=== PATIENT | female | born 1970 | race Caucasian/White ===

== ENCOUNTER 2016-05-02 20:46 | Emergency (ER) | payer BC ==
[~2016-05-02] VITALS: Ht 165.1 cm; Wt 100.0 kg
[2016-05-02 20:48] VITALS: TEMP 97.9
[2016-05-02] MEDS ORDERED: CELEXA40 MG PO (20:54)
[2016-05-02] MEDS ORDERED: CATAFLAM50 MG (20:54)
[2016-05-02] MEDS ORDERED: ZANAFLEX CAPSULE6 MG PO (20:55)
[2016-05-02] MEDS ORDERED: AMITRIPTYLINE H25 M1 PO (20:56)
[2016-05-02] MEDS ORDERED: ZOCOR 40MG40 MG PO (20:56)
[2016-05-02] MEDS ORDERED: ZANAFLEX 4MG TAB4 MG PO (20:56)
[2016-05-02] MEDS ORDERED: BYSTOLIC5 MG PO (20:57)
[2016-05-02] MEDS ORDERED: TOPAMAX 25MG25 M1 PO (20:57)
[2016-05-02] MEDS ORDERED: ULTRAM 50MG TAB50 MG PO (20:57)
[2016-05-02] MEDS ORDERED: TYLENOL 325MG325 MG PO (20:58)
[2016-05-02 21:31] LABS: BASO % 0.2 % (0.0-2.0); EOS % 0.1 % (0-4.0); GRAN # 9.6 (1.4-6.5); GRAN % 88.2 % (42.2-75.2); HEMATOCRIT 38.2 % (37.0-47.0); HEMOGLOBIN 12.9 g/dl (12.5-16.0); LYMPH # 0.8 (1.2-3.4); LYMPH % 7.2 % (20.0-51.0); MEAN CELL VOLUME 89 fl (80.0-100.0); MEAN CORPUSCULAR HEMOGLOBIN 30 pg (27.0-31.0); MEAN CORPUSCULAR HGB CONC 34 g/dl (33.0-37.0); MEAN PLATELET VOLUME 10.4 fl (7.4-10.4); MONO # 0.4 (0.1-0.6); MONO % 3.7 % (1.7-9.3); PLATELET COUNT 220 K/mm3 (130-400); REDCELL DISTRIBUTION WIDTH-CV 12.1 % (11.5-14.5); WHITE BLOOD COUNT 10.9 K/mm3 (4.8-10.8)
[2016-05-02 21:37] LABS: ADJUSTED CALCIUM 8.9 mg/dL (8.4-10.2); ALBUMIN 4.4 gm/dL (3.5-5.0); CALCIUM 9.2 mg/dL (8.4-10.2); CREATININE, serum 1.15 mg/dL (0.52-1.25); POTASSIUM 3.8 mmol/L (3.4-5.0); TOTAL PROTEIN 7.6 gm/dL (6.4-8.2)
[2016-05-02] MEDS ORDERED: NEURONTIN300 MG/CAP PO (21:44)
[2016-05-02 21:56] LABS: PH 7 (5-8); SQUAMOUS EPITHELIAL 0-2 /hpf; URINE APPEARANCE Cloudy; URINE BACTERIA None Seen /hpf; URINE BILIRUBIN Negative (NEGATIVE); URINE BLOOD Negative (NEGATIVE); URINE COLOR Amber; URINE GLUCOSE Negative (NEGATIVE); URINE KETONE Negative (NEGATIVE); URINE UROBILINOGEN >=4.0 mg/dL (NEGATIVE); URINE WBC 0-2 /hpf
[2016-05-02] MEDS ORDERED: PERCOCET 325 MG1 TA2 PO (23:00)
[2016-05-02] MEDS ORDERED: ZOFRAN ODT4 MG PO (23:06)
[2016-05-02 23:23] VITALS: BP 148/82; PULSE 84
== END 2016-05-02 23:25 | disposition home or self-care (01) ==
LOC: COL.ER 20:46
PROVIDERS: Emergency Medicine
DX: N13.2 Hydronephrosis with renal and ureteral calculous obstruction (principal); I10 Essential (primary) hypertension
CPT/HCPCS: J1885; J2405; J3010; J7030

== ENCOUNTER 2018-04-30 09:24 | Emergency (ER) | payer BC ==
[~2018-04-30] VITALS: Ht 165.1 cm; Wt 95.5 kg
[~2018-04-30 09:24] MED LIST: AMITRIPTYLINE H25 M1 PO; BYSTOLIC5 MG PO; CATAFLAM50 MG; CELEXA40 MG PO; NEURONTIN300 MG/CAP PO; PERCOCET 325 MG1 TA2 PO; TOPAMAX 25MG25 M1 PO; TYLENOL 325MG325 MG PO; ULTRAM 50MG TAB50 MG PO; ZANAFLEX 4MG TAB4 MG PO; ZANAFLEX CAPSULE6 MG PO; ZOCOR 40MG40 MG PO; ZOFRAN ODT4 MG PO
[2018-04-30 09:29] VITALS: BP 143/101; PULSE 95; TEMP 98.4
[2018-04-30] MEDS ORDERED: DOXYCYCLINE HY100 MG PO (09:55)
== END 2018-04-30 10:12 | disposition home or self-care (01) ==
LOC: COL.ER 09:24
DX: L03.031 Cellulitis of right toe (principal); F31.9 Bipolar disorder, unspecified; Z88.0 Allergy status to penicillin

== ENCOUNTER 2023-09-09 10:27 | Day surgery (SDC) | payer BC ==
[~2023-09-09] VITALS: Ht 165.1 cm; Wt 93.4 kg
[~2023-09-09 10:27] MED LIST changes: +DOXYCYCLINE HY100 MG PO; +Indocyanine Green 12.5 MG in Water For Injection,Sterile 2.5 ML IV SCH; +LR 1,000 ML IV SCH; +Meclizine 25 MG TAB PO SCH
[2023-09-09 12:36] LABS: BASO % 0.4 % (0.0-2.0); EOS # 0.1 K/mm3 (0.0-0.7); EOS % 2.7 % (0.0-4.0); GRAN # 2.5 K/mm3 (1.4-6.5); GRAN % 55.7 % (42.2-75.2); HEMATOCRIT 37.7 % (37.0-47.0); HEMOGLOBIN 12.8 g/dl (12.5-16.0); LYMPH # 1.5 K/mm3 (1.2-3.4); LYMPH % 32.7 % (20.0-51.0); MEAN CELL VOLUME 86 fl (80.0-100.0); MEAN CORPUSCULAR HEMOGLOBIN 29 pg (27-31); MEAN CORPUSCULAR HGB CONC 34 g/dl (33.0-37.0); MEAN PLATELET VOLUME 10.2 fl (7.4-10.4); MONO # 0.4 K/mm3 (0.1-0.6); MONO % 8.3 % (1.7-9.3); PLATELET COUNT 205 K/mm3 (130-400)
[2023-09-09] MEDS ORDERED: AMITRIPTYLINE H25 M1 PO (12:38)
[2023-09-09] MEDS ORDERED: KAPSPARGO SPRIN25 MG PO (12:39)
[2023-09-09] MEDS ORDERED: ZYRTEC 10MG10 MG PO (12:40)
[2023-09-09] MEDS ORDERED: ZYBAN150 M1 (12:41)
[2023-09-09 12:51] LABS: ALBUMIN 3.6 g/dL (3.5-5.0); BILIRUBIN,TOTAL 1.3 mg/dL (0.2-1.2); CALCIUM 8.7 mg/dL (8.4-10.2); CREATININE, serum 0.84 mg/dL (0.57-1.11); POTASSIUM 4.1 mEq/L (3.5-4.5); TOTAL PROTEIN 6.5 g/dl (6.2-8.1)
[2023-09-09] MEDS ORDERED: Scopolamine 1 MG Delivered 3-Day PATCH TD SCH (13:00)
[2023-09-09] MEDS ORDERED: Ondansetron 4 MG/2 ML VIAL ONE (13:09)
[2023-09-09] MEDS ORDERED: dexAMETHasone 10 MG/ML VIAL ONE (13:09)
[2023-09-09] MEDS ORDERED: Glycopyrrolate 0.2 MG/ML 1 ML VIAL ONE (13:09)
[2023-09-09] MEDS ORDERED: NS 10 ML IV ONE (13:09)
[2023-09-09] MEDS ORDERED: Midazolam 2 MG/2 ML VIAL ONE (13:09)
[2023-09-09] MEDS ORDERED: Ketorolac 30 MG/ML VIAL ONE (13:09)
[2023-09-09] MEDS ORDERED: fentaNYL 50 MCG/ML 2 ML VIAL ONE ×2 (13:09→13:49)
[2023-09-09] MEDS ORDERED: Rocuronium 50 MG/5 ML Multi-Dose VIAL ONE ×2 (13:09→13:46)
[2023-09-09] MEDS ORDERED: Lidocaine PF 2% (20 MG/ML) 5 ML VIAL ONE (13:11)
[2023-09-09] MEDS ORDERED: Topical Skin Adhesive 1 EACH (1 ML) TOP ONE (14:18)
[2023-09-09] MEDS ORDERED: hydrALAZINE 20 MG/ML 1 ML VIAL IV PRN (14:30)
[2023-09-09] MEDS ORDERED: Ondansetron 4 MG/2 ML VIAL IV PRN ×2 (14:30→15:30)
[2023-09-09] MEDS ORDERED: fentaNYL 50 MCG/ML 1 ML SYRINGE/VIAL [PACU/SDC ONLY] IV PRN (14:30)
[2023-09-09] MEDS ORDERED: Iohexol 350 - 100 ML VIAL BILE DUCT ONE (14:42)
[2023-09-09] MEDS ORDERED: MOTRIN 600600 MG/TAB PO (15:09)
[2023-09-09] MEDS ORDERED: PERCOCET 325 MG1 TA2 PO (15:10)
[2023-09-09] MEDS ORDERED: Morphine 4 MG/ML VIAL IV PRN (15:30)
[2023-09-09] MEDS ORDERED: oxyCODONE/Acetaminophen 5-325 MG TAB PO PRN (15:30)
[2023-09-09] MEDS ORDERED: Ibuprofen 600 MG TAB PO PRN (15:30)
[2023-09-09] MEDS ORDERED: droPERidol 2.5 MG/ML 2 ML VIAL IV PRN (16:30)
[2023-09-09 16:35] VITALS: BP 119/61; PULSE 87; TEMP 96.6
[2023-09-09 16:45] VITALS: BP 114/66; PULSE 82
[2023-09-09 17:00] VITALS: BP 119/63; PULSE 88
[2023-09-09 18:05] VITALS: BP 126/79; PULSE 71; TEMP 97.2
--- NOTE | 2023-09-09 18:14 | NUR ---
1635- PT RETURNS FROM PACU PROCEDURE VIA CART TO [facility]. MONITORS ON AND ALARMS SET. CALL LIGHT WITHIN REACH. REPORT RECEIVED FROM MALGORZATA PANTOJA. PT ALERT AND ORIENTED. PT REQUESTS WTER. PT DENIES ANY PAIN. STILL HAS SOME NAUSEA. CALL LIGHT WITHIN REACH. 1645- PT TAKING DRINK WELL. NO COMPLICATIONS NOTED. 1700- PT REPORTING 7/10 PAIN. PERCOCET GIVEN AT 1715. 1730- PT DOING WELL AFTER PERCOCET. STILL NAUSEAOUS RESTING IN BED. 1745- DISCHARGE INSTRUCITONS GIVEN TO PT. PT HAD NO QUESTIONS. 1755- PT TRANSFERRED OUT OF THE HOSPITAL VIA WHEELCHAIR AND ASSIST TO PRIVATE VEHICLE DRIVEN BY .
== END 2023-09-09 17:55 | disposition home or self-care (01) ==
LOC: SDCO 10:27
PROVIDERS: Surgery
DX: K80.10 Calculus of gallbladder with chronic cholecystitis without obstruction (principal)
CPT/HCPCS: J0690; J0780; J1100; J1790; J1885; J2250; J2405; J2704; J3010; J7120; Q9967